=== PATIENT | male | born 1940 | race Caucasian/White ===

== ENCOUNTER 2017-06-04 07:20 | Inpatient (IN) | payer OTHER ==
[~2017-06-04] VITALS: Ht 172.7 cm; Wt 85.1 kg
[~2017-06-04 07:20] MED LIST: AMLO5TAB2 PO; ASPI81TA13 PO; LEVEMIR SC; METF-370 PO; OMEP20CA74 PO; SIMV-8 PO; TAMS0.4C36 PO
[2017-06-04] MEDS ORDERED: IOHEXOL 350 MG/ML 100ML IJ ONE ×2 (07:36→08:54)
[2017-06-04] MEDS ORDERED: LIDOCAINE 2%HCL (LOCAL ANESTH.) INJ 20ML MDV ONE (07:36)
[2017-06-04] MEDS ORDERED: CLOPIDOGREL 300 MG TAB ONE (08:08)
[2017-06-04] MEDS ORDERED: ASPirin 325 MG TAB ONE (08:12)
[2017-06-04] MEDS ORDERED: ASPirin-EC 325mg tab PO ONE (08:15)
[2017-06-04] MEDS ORDERED: CLOPIDOGREL 300 MG TAB PO ONE (08:15)
[2017-06-04] MEDS ORDERED: MIDAZOLAM HCL 1MG/1ML-2 ML VIAL ONE (08:22)
[2017-06-04] MEDS ORDERED: SODIUM CHL 0.9% 50 ML ONE (08:22)
[2017-06-04] MEDS ORDERED: ANGIOMAX 250 MG VIAL IV ONE (08:22)
[2017-06-04] MEDS ORDERED: fentaNYL CITRATE 100 MCG/2 ML VL ONE (08:22)
[2017-06-04] MEDS ORDERED: VERAPAMIL 2.5MG/ML INJ 2ML VIAL IV ONE (08:31)
[2017-06-04] MEDS ORDERED: NITROGLYCERIN 0.4 MG SL TAB SL PRN (10:45)
[2017-06-04] MEDS ORDERED: MORPHINE SULFATE 4 MG/ML SYR/VIAL IV PRN (10:45)
[2017-06-04] MEDS ORDERED: ACETAMINOPHEN 500 MG TAB PO PRN (10:45)
[2017-06-04] MEDS ORDERED: DEXTROSE (50%) 50ML SYRG IV PRN (11:00)
[2017-06-04] MEDS: ACCU-CHEK COMFORT CURVE STRIP VI SCH ×3 (11:30→22:49)
[2017-06-04] MEDS: InsuLIN REG 1unit/0.01ml Soln (100units/ml) SC SCH ×3 (11:30→22:00)
[2017-06-04 12:10] VITALS: BP 115/60
[2017-06-04 12:45] VITALS: BP 115/66
[2017-06-04] MEDS: SODIUM CHLOR 0.9% PF (SALINE LOCK) 10ML VIAL IV SCH ×2 (14:28→22:57)
[2017-06-04 17:00] VITALS: BP 100/59
[2017-06-04] MEDS ORDERED: INSULIN DETEMIR 15 UNIT SC SCH (18:00)
[2017-06-04 22:00] VITALS: BP 120/71
[2017-06-04] MEDS ORDERED: PATIENTS OWN MEDICATION (Simvastatin 20 MG) PO SCH (22:00)
[2017-06-04] MEDS ORDERED: INSULIN LANTUS (GLARGINE) 1 /0.01ml (100units/ml) SC SCH (22:00)
[2017-06-04] MEDS ORDERED: PRAVASTATIN SODIUM 20 MG TAB PO SCH (22:00)
[2017-06-04] MEDS ORDERED: OMEPRAZOLE 20MG/10ML ORAL SUSP PO SCH (22:00)
[2017-06-04] MEDS ORDERED: PANTOPRAZOLE 40 MG TAB PO SCH (22:00)
[2017-06-05 05:00] VITALS: BP 122/72
[2017-06-05] MEDS: SODIUM CHLOR 0.9% PF (SALINE LOCK) 10ML VIAL IV SCH (06:00)
[2017-06-05] MEDS: InsuLIN REG 1unit/0.01ml Soln (100units/ml) SC SCH (07:00)
[2017-06-05] MEDS ORDERED: INSULIN LANTUS (GLARGINE) 1 /0.01ml (100units/ml) SC SCH (07:00)
[2017-06-05] MEDS ORDERED: INSULIN DETEMIR 25 UNIT SC SCH (07:00)
[2017-06-05] MEDS: ACCU-CHEK COMFORT CURVE STRIP VI SCH (07:00)
[2017-06-05] MEDS ORDERED: CLOP75TA28 PO (07:17)
[2017-06-05 09:29] VITALS: BP 142/81
[2017-06-05] MEDS ORDERED: TAMSULOSIN HYDROCHLORIDE 0.4 MG CAP PO SCH (10:00)
[2017-06-05] MEDS ORDERED: amLODIPine BESYLATE 5 MG TAB PO SCH (10:00)
[2017-06-05] MEDS ORDERED: CLOPIDOGREL BISULFATE 75 MG TAB PO SCH (10:00)
[2017-06-05] MEDS ORDERED: ASPirin-EC 81 mg tab PO SCH (10:00)
== END 2017-06-05 13:05 | disposition home or self-care (01) | DRG 249 ==
LOC: CATH 07:20 → TELE-WESTW 07:21
PROVIDERS: ADMIT Internal Medicine; ATTEND Internal Medicine
PROC: 02703EZ Dilation of Coronary Artery, One Artery with Two Intraluminal Devices, Percutaneous Approach (ICD-10-PCS; principal; 2017-06-05)
PROC: 4A023N7 Measurement of Cardiac Sampling and Pressure, Left Heart, Percutaneous Approach (ICD-10-PCS; 2017-06-05)
PROC: B41J1ZZ Fluoroscopy of Other Lower Arteries using Low Osmolar Contrast (ICD-10-PCS; 2017-06-05)
PROC: B2111ZZ Fluoroscopy of Multiple Coronary Arteries using Low Osmolar Contrast (ICD-10-PCS; 2017-06-05)
DX: I25.10 Atherosclerotic heart disease of native coronary artery without angina pectoris (principal); E11.9 Type 2 diabetes mellitus without complications; E78.5 Hyperlipidemia, unspecified; Z82.49 Family history of ischemic heart disease and other diseases of the circulatory system; Z87.891 Personal history of nicotine dependence
CPT/HCPCS: 82962; 87081; 92928; 93005; 93458; 99152; C1874; J1815; J2250

== ENCOUNTER 2019-09-15 06:43 | Day surgery (SDC) | payer OTHER ==
[~2019-09-15] VITALS: Ht 172.7 cm; Wt 83.0 kg
[~2019-09-15 06:43] MED LIST changes: -AMLO5TAB2 PO; +ASPI1TAB19 PO; -ASPI81TA13 PO; +CLOP75TA41 PO; +FINA5TAB4 PO; +LISI10TA6 PO; -TAMS0.4C36 PO
[2019-09-15] MEDS ORDERED: IODIXANOL 320MG/ML 100ML BTL IV ONE (07:32)
[2019-09-15] MEDS ORDERED: LIDOCAINE 2%HCL (LOCAL ANESTH.) INJ 20ML MDV ONE (07:32)
[2019-09-15] MEDS ORDERED: ANGIOMAX 250 MG VIAL IV ONE (07:54)
[2019-09-15] MEDS ORDERED: SODIUM CHL 0.9% 0 ML ONE (07:54)
[2019-09-15] MEDS ORDERED: fentaNYL CITRATE 100 MCG/2 ML VL ONE (07:54)
[2019-09-15] MEDS ORDERED: MIDAZOLAM HCL 1MG/1ML-2 ML VIAL ONE (07:54)
[2019-09-15] MEDS ORDERED: VERAPAMIL 2.5MG/ML INJ 2ML VIAL IV ONE (07:54)
[2019-09-15] MEDS ORDERED: NITROGLYCERIN 50MG/250ML 250 ML IV ONE (07:57)
== END 2019-09-15 10:55 | disposition home or self-care (01) ==
LOC: CATH 06:43
PROVIDERS: ATTEND Internal Medicine
DX: R07.89 Other chest pain (principal); I25.119 Atherosclerotic heart disease of native coronary artery with unspecified angina pectoris; R94.39 Abnormal result of other cardiovascular function study; E11.9 Type 2 diabetes mellitus without complications; I10 Essential (primary) hypertension; J45.909 Unspecified asthma, uncomplicated; Z79.4 Long term (current) use of insulin; Z79.84 Long term (current) use of oral hypoglycemic drugs; Z79.82 Long term (current) use of aspirin; Z79.899 Other long term (current) drug therapy; Z11.59 Encounter for screening for other viral diseases
CPT/HCPCS: 93005; 93458; C1769; C1887; C1894; C9803; J1644; J2250; J3010; Q9967; U0003; 99152

== ENCOUNTER 2021-07-26 14:35 | Inpatient (IN) | payer OTHER ==
[2021-07-26] VITALS (11 sets, daily range): BP systolic 132–159; BP diastolic 46–85
[~2021-07-26] VITALS: Ht 172.7 cm; Wt 78.9 kg
[~2021-07-26 14:35] MED LIST changes: -CLOP75TA41 PO; +CLOP75TA70 PO; +LISI-716 PO; -LISI10TA6 PO
[2021-07-26] MEDS ORDERED: SODIUM CHLORIDE 0.9% 500 ML IV ONE (15:30)
[2021-07-26 15:31] LABS: Basophils # (auto) 0.1 10 ^3/uL (0-0.2); Eosinophils # (auto) 0.2 10 ^3/uL (0-0.8); Lymphocytes # (auto) 1.7 10 ^3/uL (0.4-5.4); Monocytes # (auto) 0.4 10 ^3/uL (0-1.3); Monocytes % (auto) 6.1 % (0.0-12.0); Nucleated Red Blood Cells % 0.1 %; Red Blood Cells 2.75 10^6/uL (4.5-5.90)
[2021-07-26 15:33] LABS: Basophils % (auto) 1.1 % (0.0-2.0); Hematocrit 21.6 % (41.0-53.0); Lymphocytes % (auto) 24.4 % (10.0-50.0); Mean Corpuscular Hemoglobin 24.5 pg (28.0-32.0); Mean Corpuscular Hgb Conc. 31.2 g/dL (32.0-36.0); Mean Corpuscular Volume 78.6 fL (80.0-100.0); Neutrophils # (auto) 4.5 10 ^3/uL (1.6-8.6); Neutrophils % (auto) 65.4 % (37.0-80.0); Red Cell Distribution Width 16.3 % (11.8-14.3); White Blood Cell 6.9 10^3/uL (4.4-10.8)
[2021-07-26 15:37] LABS: Hemoglobin 6.7 g/dL (13.5-17.5)
[2021-07-26 16:10] LABS: Calcium 8.5 mg/dL (8.5-10.1); Potassium 4.5 mmol/L (3.5-5.1)
[2021-07-26 16:16] LABS: Albumin 3.6 g/dL (3.4-5.0); BUN/Creatinine Ratio 14.5; Bilirubin, Total 0.3 mg/dL (0.2-1.0)
[2021-07-26 17:34] LABS: Urine Bacteria NONE SEEN /hpf (None Seen); Urine Blood Negative /uL (Negative); Urine Specific Gravity 1.015 (1.001-1.035); Urine WBC <1 /hpf (0 - 3)
[2021-07-26] MEDS ORDERED: ONDANSETRON HCL 4 MG/2 ML VIAL IV PRN (21:15)
[2021-07-26] MEDS ORDERED: PANTOPRAZOLE 40 MG TAB PO ONE (21:15)
[2021-07-26] MEDS ORDERED: DEXTROSE (50%) 50ML SYRG IV PRN (21:15)
[2021-07-26] MEDS ORDERED: ATORVASTATIN 20 MG TAB PO SCH (22:00)
[2021-07-26 22:22] LABS: % Iron Saturation 22.2 % (20-55)
[2021-07-26] MEDS: ACCU-CHEK COMFORT CURVE STRIP VI SCH (23:43)
[2021-07-26] MEDS: InsuLIN REG 1unit/0.01ml Soln (100units/ml) SC SCH (23:43)
[2021-07-27 00:28] VITALS: BP 167/85
[2021-07-27 01:28] VITALS: BP 165/88
[2021-07-27 05:14] VITALS: BP 147/71
[2021-07-27] MEDS: InsuLIN REG 1unit/0.01ml Soln (100units/ml) SC SCH ×3 (06:00→18:00)
[2021-07-27 06:20] LABS: Basophils # (auto) 0.1 10 ^3/uL (0-0.2); Basophils % (auto) 1.2 % (0.0-2.0); Eosinophils # (auto) 0.4 10 ^3/uL (0-0.8); Eosinophils % (auto) 5.6 % (0.0-7.0); Hematocrit 25.7 % (41.0-53.0); Hemoglobin 8.7 g/dL (13.5-17.5); Lymphocytes # (auto) 2.1 10 ^3/uL (0.4-5.4); Lymphocytes % (auto) 31.5 % (10.0-50.0); Mean Corpuscular Volume 79.2 fL (80.0-100.0); Monocytes # (auto) 0.5 10 ^3/uL (0-1.3); Monocytes % (auto) 7.9 % (0.0-12.0); Neutrophils # (auto) 3.5 10 ^3/uL (1.6-8.6); Neutrophils % (auto) 53.8 % (37.0-80.0); Nucleated Red Blood Cells % 0.1 %; Red Blood Cells 3.24 10^6/uL (4.5-5.90); Red Cell Distribution Width 16.3 % (11.8-14.3); White Blood Cell 6.5 10^3/uL (4.4-10.8)
[2021-07-27] MEDS: ACCU-CHEK COMFORT CURVE STRIP VI SCH ×3 (06:20→18:00)
[2021-07-27 06:43] LABS: Calcium 8.5 mg/dL (8.5-10.1); Potassium 4.7 mmol/L (3.5-5.1)
[2021-07-27 06:47] LABS: Albumin 3.1 g/dL (3.4-5.0); BUN/Creatinine Ratio 16.7
[2021-07-27 06:50] LABS: Bilirubin, Total 0.6 mg/dL (0.2-1.0)
[2021-07-27 09:00] VITALS: BP 145/83
[2021-07-27] MEDS ORDERED: FINASTERIDE 5 MG TAB PO SCH (10:00)
[2021-07-27] MEDS ORDERED: ASPirin 81 mg TAB PO SCH (10:00)
[2021-07-27] MEDS ORDERED: CLOPIDOGREL BISULFATE 75 MG TAB PO SCH (10:00)
[2021-07-27] MEDS ORDERED: LISINOPRIL 10 MG TAB PO SCH (10:00)
[2021-07-27] MEDS ORDERED: PANTOPRAZOLE 40 MG TAB PO SCH (10:00)
[2021-07-27 12:18] VITALS: BP 179/86
[2021-07-27 13:16] LABS: Basophils # (auto) 0.1 10 ^3/uL (0-0.2); Eosinophils # (auto) 0.3 10 ^3/uL (0-0.8); Mean Corpuscular Hemoglobin 26.1 pg (28.0-32.0); Mean Corpuscular Hgb Conc. 32.7 g/dL (32.0-36.0); Nucleated Red Blood Cells % 0.1 %
[2021-07-27 13:17] LABS: Eosinophils % (auto) 5.1 % (0.0-7.0); Hemoglobin 9.5 g/dL (13.5-17.5); Lymphocytes # (auto) 1.5 10 ^3/uL (0.4-5.4); Lymphocytes % (auto) 22.9 % (10.0-50.0); Mean Corpuscular Volume 79.7 fL (80.0-100.0); Monocytes # (auto) 0.4 10 ^3/uL (0-1.3); Monocytes % (auto) 6.4 % (0.0-12.0); Neutrophils # (auto) 4.4 10 ^3/uL (1.6-8.6); Neutrophils % (auto) 64.6 % (37.0-80.0); Red Blood Cells 3.64 10^6/uL (4.5-5.90); Red Cell Distribution Width 16.5 % (11.8-14.3); White Blood Cell 6.8 10^3/uL (4.4-10.8)
[2021-07-27 17:01] VITALS: BP 131/77
== END 2021-07-27 21:00 | disposition home health service (06) | DRG 812 ==
LOC: ER 14:35 → OVERFLOW 21:05 → CENTRAL 22:23
PROVIDERS: ADMIT Nurse Practitioner; ATTEND Internal Medicine
PROC: 30233N1 Transfusion of Nonautologous Red Blood Cells into Peripheral Vein, Percutaneous Approach (ICD-10-PCS; principal; 2021-07-26)
DX: D64.9 Anemia, unspecified (principal); N17.9 Acute kidney failure, unspecified; N18.9 Chronic kidney disease, unspecified; E78.5 Hyperlipidemia, unspecified; K21.9 Gastro-esophageal reflux disease without esophagitis; Z20.822 Contact with and (suspected) exposure to COVID-19; E11.22 Type 2 diabetes mellitus with diabetic chronic kidney disease; R07.89 Other chest pain; N40.0 Benign prostatic hyperplasia without lower urinary tract symptoms; I12.9 Hypertensive chronic kidney disease with stage 1 through stage 4 chronic kidney disease, or unspecified chronic kidney disease; Z80.0 Family history of malignant neoplasm of digestive organs; Z95.5 Presence of coronary angioplasty implant and graft
CPT/HCPCS: 36415; 80053; 81001; 82270; 82962; 83540; 83550; 84484; 85025; 86850; 86900; 86901; 86920; 93005; 96360; 96361; 99291; G0378

== ENCOUNTER 2021-12-13 11:52 | Emergency (ER) | payer OTHER ==
[~2021-12-13] VITALS: Ht 165.1 cm; Wt 75.0 kg
[~2021-12-13 11:52] MED LIST changes: -ASPI1TAB19 PO; -CLOP75TA70 PO
[2021-12-13 12:02] VITALS: BP 145/85
[2021-12-13 12:36] LABS: Basophils # (auto) 0.1 10 ^3/uL (0-0.2); Basophils % (auto) 0.7 % (0.0-2.0); Eosinophils # (auto) 0.3 10 ^3/uL (0-0.8); Eosinophils % (auto) 4.2 % (0.0-7.0); Hematocrit 32.9 % (41.0-53.0); Hemoglobin 10.7 g/dL (13.5-17.5); Lymphocytes # (auto) 1.8 10 ^3/uL (0.4-5.4); Lymphocytes % (auto) 26.4 % (10.0-50.0); Mean Corpuscular Hemoglobin 29.4 pg (28.0-32.0); Mean Corpuscular Hgb Conc. 32.6 g/dL (32.0-36.0); Mean Corpuscular Volume 90.4 fL (80.0-100.0); Monocytes # (auto) 0.4 10 ^3/uL (0-1.3); Monocytes % (auto) 5.1 % (0.0-12.0); Neutrophils # (auto) 4.4 10 ^3/uL (1.6-8.6); Neutrophils % (auto) 63.6 % (37.0-80.0); Nucleated Red Blood Cells % 0.2 %; Red Blood Cells 3.64 10^6/uL (4.5-5.90); Red Cell Distribution Width 16.4 % (11.8-14.3); White Blood Cell 6.9 10^3/uL (4.4-10.8)
[2021-12-13 12:51] LABS: Albumin 3.7 g/dL (3.4-5.0); BUN/Creatinine Ratio 15.8; Calcium 8.9 mg/dL (8.5-10.1); Potassium 4.4 mmol/L (3.5-5.1)
[2021-12-13 12:53] LABS: Bilirubin, Total 0.3 mg/dL (0.2-1.0); Total Protein 7.3 g/dL (6.4-8.2)
[2021-12-13 12:54] LABS: INR 1.01 (0.9-1.15)
[2021-12-13 15:59] LABS: Urine Bacteria NONE SEEN /hpf (None Seen); Urine Blood Negative /uL (Negative); Urine Specific Gravity 1.014 (1.001-1.035); Urine WBC <1 /hpf (0 - 3)
== END 2021-12-13 21:27 | disposition left against medical advice (07) ==
LOC: ER 11:52
DX: D64.89 Other specified anemias (principal); E11.9 Type 2 diabetes mellitus without complications; E78.5 Hyperlipidemia, unspecified; R51.9 Headache, unspecified
CPT/HCPCS: 36415; 70450; 71045; 80053; 81001; 84484; 85025; 85610; 85730; 93005